=== PATIENT | female | born 1960 | race Hispanic/Latino ===

== ENCOUNTER 2017-10-26 07:27 | Outpatient (CLI) | payer BC ==
--- NOTE | 2017-10-26 08:50 | Mammography Report ---
BILATERAL DIGITAL DIAGNOSTIC MAMMOGRAM with CAD and RIGHT BREAST ULTRASOUND: 10/26/17 07:27:00 CLINICAL: The patient presented with an order for screening mammogram. However, she complained of a palpable lump in the right axilla and the order was changed to a diagnostic mammogram and right breast ultrasound. COMPARISON:None available. FINDINGS: The breasts are almost entirely fatty.No mass, architectural distortion or suspicious calcifications. No suspicious finding and a right axillary palpable marker. Several large bilateral fatty axillary lymph nodes are identified. Ultrasound of the right axilla demonstrated a palpable lymph node with abundant central fat to correspond with what she feels. It measures 3.5 x 1.3 x 2.0 cm. IMPRESSION: Negative mammogram and negative right axillary ultrasound with benign bilateral axillary lymph nodes. BI-RADS CATEGORY: 2 - - Benign RECOMMENDATION: Clinical followup and routine mammographic screening in one year. ACR BI-RADS MAMMOGRAPHIC CODES: 0 = Needs additional imaging evaluation; 1 = Negative; 2 = Benign; 3 = Probably benign; 4 = Suspicious; 5 = Malignant; 6 = Known biopsy-proven malignancy COMMENT: 1. Dense breast tissue, i.e., adenosis, fibrocystic changes, etc., may obscure an underlying neoplasm. 2. Approximately 10% of cancers are not detected with mammography. 3. A negative mammography report should not delay biopsy if a clinically suspicious mass is present. COMMENT: Patient follow-up letters are generated by our [employer] application.
== END 2017-10-26 07:28 | disposition home or self-care (01) ==
LOC: MAMMO 07:27
PROVIDERS: ATTEND Internal Medicine
DX: R92.8 Other abnormal and inconclusive findings on diagnostic imaging of breast (principal)
CPT/HCPCS: 77066

== ENCOUNTER 2018-02-14 13:31 | Outpatient (CLI) | payer BC ==
[2018-02-14 14:05] LABS: Hematocrit 41.8 % (30.3-42.9); Hemoglobin 14.1 gm/dl (10.1-14.3); Mean Corpuscular HGB Conc 34 % (30-34); Mean Corpuscular Hemoglobin 31 pg (28-32); Mean Corpuscular Volume 92 fl (79-97); Platelet Count 301 K/mm3 (140-440); Red Blood Count 4.53 M/mm3 (3.65-5.03); Red Cell Distribution Width 13.3 % (13.2-15.2)
[2018-02-14 14:31] LABS: Alanine Aminotransferase 21 units/L (7-56); Albumin 3.9 g/dL (3.9-5); BUN/Creatinine Ratio 20; Blood Urea Nitrogen 12 mg/dL (7-17); Calcium 9.4 mg/dL (8.4-10.2); Chol/HDL Ratio 6.75 %; HDL Cholesterol 54 mg/dL (40-59); Hemolysis Index 4; LDL Cholesterol,Direct TNR mg/dL (50-130)
== END 2018-02-14 13:32 | disposition home or self-care (01) ==
LOC: LAB 13:31
PROVIDERS: ATTEND Internal Medicine
DX: E11.65 Type 2 diabetes mellitus with hyperglycemia (principal); E11.39 Type 2 diabetes mellitus with other diabetic ophthalmic complication; H40.9 Unspecified glaucoma; R53.83 Other fatigue; E78.2 Mixed hyperlipidemia; E55.9 Vitamin D deficiency, unspecified; J45.909 Unspecified asthma, uncomplicated; J06.9 Acute upper respiratory infection, unspecified; K21.9 Gastro-esophageal reflux disease without esophagitis; M06.9 Rheumatoid arthritis, unspecified; E78.00 Pure hypercholesterolemia, unspecified
CPT/HCPCS: 36415; 80053; 80061; 82306; 82607; 82784; 82785; 83036; 84443; 85027

== ENCOUNTER 2019-04-12 10:27 | Day surgery (SDC) | payer BC ==
--- NOTE | 2019-04-12 11:36 | Anesthesia Day of Surgery ---
Anesthesia Day of Surgery - Day of Surgery Patient Examined: Yes Patient H&P Reviewed: Yes Patient is NPO: Yes
--- NOTE | 2019-04-12 11:40 | Anesthesia Consultation ---
Anesthesia Consult and Med Hx Date of service: 04/12/19 - Airway Anesthetic Teeth Evaluation: Good, Crowns ROM Head & Neck: Adequate Mental/Hyoid Distance: Adequate Mallampati Class: Class III Intubation Access Assessment: Probably Good - Pre-Operative Health Status ASA Pre-Surgery Classification: ASA3 Proposed Anesthetic Plan: MAC - Pulmonary Hx Asthma: Yes Hx Sleep Apnea: Yes - Cardiovascular System Hx Hypertension: Yes Hx Coronary Artery Disease: No (NST last year-ok per pt) - Central Nervous System Hx Psychiatric Problems: Yes (Anxious) - Other Systems Hx Alcohol Use: Yes (Occasional)
[2019-04-12] MEDS ORDERED: NACL 0.9% 1000 ML 1,000 ML IV SCH (12:00)
[2019-04-12] MEDS ORDERED: VERSED IV NR (12:00)
[2019-04-12] MEDS ORDERED: DIPRIVAN 10 MG/ML IV ONE ×2 (13:01)
--- NOTE | 2019-04-12 13:18 | Short Stay Summary ---
Short Stay Documentation Date of service: 04/12/19 - History H&P: obtained from office - Allergies and Medications Current Medications: Allergies Sulfa (Sulfonamide Antibiotics) Allergy (Verified 04/24/14 03:25) Hives ivp dye Allergy (Uncoded 04/24/14 03:25) Hives Home Medications Medication Instructions Recorded Confirmed Last Taken Type Metoprolol 50 mg PO DAILY 04/12/19 04/12/19 04/11/19 History Potassium Chloride 10 meq PO DAILY 04/12/19 04/12/19 04/11/19 History Telmisartan 80 mg PO DAILY 04/12/19 04/12/19 04/11/19 History ZyrTEC 10mg cap 1 tab PO DAILY 04/12/19 04/12/19 04/12/19 History Active Medications Sodium Chloride (Nacl 0.9% 1000 Ml) 1,000 mls @ 50 mls/hr IV DIRECT NICKI Last Admin: 04/12/19 12:12 Dose: 50 mls/hr Documented by: Midazolam HCl (Versed) 2 mg IV PREOP NR Stop: 04/12/19 23:59 Last Admin: 04/12/19 12:14 Dose: 2 mg Documented by: - Brief post op/procedure progress note Date of procedure: 04/12/19 Pre-op diagnosis: Screening Post-op diagnosis: other (Diverticulosis) Procedure: Colonoscopy Anesthesia: MAC Findings: 1. Diffuse diverticulosis 2. Otherwise normal colonoscopy Surgeon: RHONA BEJARANO Estimated blood loss: none Pathology: none Condition: stable - Disposition Condition at discharge: Good Disposition: DC-01 TO HOME OR SELFCARE Short Stay Discharge Plan Activity: no restrictions Diet: regular Follow up with: ALEXANDRO ROONEY MD [Primary Care Provider] - 7 Days
--- NOTE | 2019-04-12 14:08 | Operative Report ---
COLONOSCOPY REPORT PROCEDURE: Colonoscopy. PREOPERATIVE DIAGNOSIS: Screening. POSTOPERATIVE DIAGNOSIS: Diverticulosis. SEDATION: MAC by Anesthesia. HISTORY: The patient is a 58-year-old woman who presents for screening colonoscopy. Procedure, indications, risks, and benefits were explained and consent was obtained. The patient was placed in left lateral decubitus position and sedated. Video colonoscope was passed through the rectum after digital examination and passed with minimal difficulty to the cecum, which was identified by the ileocecal valve and the appendiceal orifice. Scope was then gradually withdrawn with close inspection of the mucosa. Prep was good. FINDINGS: 1. Scattered diverticula noted throughout the whole colon. 2. Remainder of visualized colonic mucosa is normal appearing with no evidence of mass lesions, vascular lesions or inflammation. The patient tolerated the procedure well without immediate complications. IMPRESSION: 1. Diverticulosis. 2. Otherwise, normal colonoscopy. PLAN: 1. High fiber diet. 2. Repeat colonoscopy for screening in 10 years. [facility]# [id number] HRC/NTS
[2019-04-12 16:08] VITALS: BP 108/43
== END 2019-04-12 10:28 | disposition home or self-care (01) ==
LOC: GIO 10:27
PROVIDERS: ATTEND Internal Medicine Gastroenterology
DX: Z12.11 Encounter for screening for malignant neoplasm of colon (principal); K57.30 Diverticulosis of large intestine without perforation or abscess without bleeding; J45.909 Unspecified asthma, uncomplicated; G47.30 Sleep apnea, unspecified; I25.10 Atherosclerotic heart disease of native coronary artery without angina pectoris; I10 Essential (primary) hypertension; Z88.2 Allergy status to sulfonamides; Z91.041 Radiographic dye allergy status; Z79.899 Other long term (current) drug therapy; Z72.89 Other problems related to lifestyle; Z90.710 Acquired absence of both cervix and uterus
CPT/HCPCS: 45378; J2250; J2704; J7030

== ENCOUNTER 2019-07-04 15:43 | Outpatient (CLI) | payer BC ==
--- NOTE | 2019-07-04 18:30 | Magnetic Resonance Report ---
MRI LUMBAR SPINE 07/04/2019 INDICATION / CLINICAL INFORMATION: SEVERE LOWER BACK PAIN,/ M54.5 - Low Back Pain. COMPARISON: None available. FINDINGS: GENERAL OBSERVATIONS: Unenhanced and enhanced MR images of the lumbar spine were obtained. Vertebral body alignment is normal. [id number] ANALYSIS: L5-S1: Unremarkable. L4-5: The disc profile is well preserved. Mild facet degenerative changes are present. L3-4: Normal. L2-3: Normal. L1-2: Normal. BONE MARROW: No significant abnormality. SPINAL CORD/CAUDA EQUINA: Normal PARASPINAL SOFT TISSUES: No significant abnormality. IMPRESSION: Essentially negative unenhanced MRI of the lumbar spine. No evidence of disc herniation or nerve root compression. Signer Name: Sung Germain MD Signed: 07/04/2019 6:26 PM Workstation Name: [id number]
== END 2019-07-04 15:44 | disposition home or self-care (01) ==
LOC: MRI 15:43
PROVIDERS: ATTEND Internal Medicine
DX: M54.5 Low back pain (principal); M47.816 Spondylosis without myelopathy or radiculopathy, lumbar region; J45.909 Unspecified asthma, uncomplicated; I25.10 Atherosclerotic heart disease of native coronary artery without angina pectoris; I10 Essential (primary) hypertension; Z90.710 Acquired absence of both cervix and uterus
CPT/HCPCS: 72158; A9577

== ENCOUNTER 2019-10-03 13:35 | Outpatient (CLI) | payer BC ==
--- NOTE | 2019-10-03 14:34 | XRay Report ---
SACROILIAC JOINTS 3 VIEWS INDICATION: PAIN IN RT HIP. Lower back pain. COMPARISON: None. IMPRESSION: No acute osseous or soft tissue abnormality. 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 No bony erosions or ankylosis. BILATERAL HIPS WITH AP PELVIS 3 VIEWS INDICATION: PAIN IN RT HIP. COMPARISON: None. IMPRESSION: No acute osseous or soft tissue abnormality. No significant DJD. Signer Name: Prosper Kowalski Jr, MD Signed: 10/03/2019 2:30 PM Workstation Name: [id number]
== END 2019-10-03 13:36 | disposition home or self-care (01) ==
LOC: XRAY 13:35
PROVIDERS: ATTEND Anesthesiology
DX: M25.551 Pain in right hip (principal); M25.552 Pain in left hip; M46.1 Sacroiliitis, not elsewhere classified; M54.89 Other dorsalgia; M47.818 Spondylosis without myelopathy or radiculopathy, sacral and sacrococcygeal region
CPT/HCPCS: 72202; 73521

== ENCOUNTER 2019-10-12 13:35 | Outpatient (CLI) | payer BC ==
[2019-10-12 14:01] LABS: Hematocrit 40.3 % (30.3-42.9); Hemoglobin 13.8 gm/dl (10.1-14.3); Mean Corpuscular HGB Conc 34 % (30-34); Mean Corpuscular Volume 92 fl (79-97); Platelet Count 327 K/mm3 (140-440); Red Cell Distribution Width 12.9 % (13.2-15.2)
[2019-10-12 14:27] LABS: Alanine Aminotransferase 18 units/L (7-56); Albumin 4.3 g/dL (3.9-5); BUN/Creatinine Ratio 17; Blood Urea Nitrogen 12 mg/dL (7-17); Calcium 9.5 mg/dL (8.4-10.2); Chol/HDL Ratio 5.11 %; HDL Cholesterol 53 mg/dL (40-59); Hemolysis Index 5; LDL Cholesterol,Direct 185 mg/dL (50-130)
[2019-10-16 14:12] LABS: Vitamin D, 25-OH, D2 <4 ng/mL
== END 2019-10-12 13:36 | disposition home or self-care (01) ==
LOC: LAB 13:35
PROVIDERS: ATTEND Internal Medicine
DX: Z00.00 Encounter for general adult medical examination without abnormal findings (principal); Z13.1 Encounter for screening for diabetes mellitus; R53.83 Other fatigue; E78.2 Mixed hyperlipidemia; E55.9 Vitamin D deficiency, unspecified
CPT/HCPCS: 36415; 80053; 80061; 82306; 83036; 84443; 85027